=== PATIENT | male | born 1990 | race Caucasian/White ===

== ENCOUNTER 2018-07-18 11:41 | Emergency (ER) | payer OTHER ==
[~2018-07-18] VITALS: Ht 177.8 cm; Wt 113.6 kg
[~2018-07-18 11:41] MED LIST: NORCO 325 MG-51 TAB PO; PRILOSEC 20MG20 MG PO
[2018-07-18 11:53] VITALS: TEMP 98.7
[2018-07-18] MEDS ORDERED: PHENERGAN25 MG (12:03)
[2018-07-18 12:37] LABS: BASO % 0.3 % (0.0-2.0); EOS # 0.1 (0.0-0.7); EOS % 0.9 % (0-4.0); GRAN # 7.3 (1.4-6.5); GRAN % 69.1 % (42.2-75.2); LYMPH # 2.1 (1.2-3.4); LYMPH % 19.8 % (20.0-51.0); MEAN CELL VOLUME 81 fl (80.0-100.0); MEAN CORPUSCULAR HEMOGLOBIN 29 pg (27.0-31.0); MEAN CORPUSCULAR HGB CONC 36 g/dl (33.0-37.0); MEAN PLATELET VOLUME 9.4 fl (7.4-10.4); MONO % 9.3 % (1.7-9.3); PLATELET COUNT 318 K/mm3 (130-400); RED BLOOD COUNT 5.78 M/mm3 (4.20-5.60); REDCELL DISTRIBUTION WIDTH-CV 11.9 % (11.5-14.5)
[2018-07-18 12:41] LABS: COLLECTION METHOD CLEAN CATCH
[2018-07-18 12:46] LABS: MUCOUS Present /lpf; PH 6 (5-8); SQUAMOUS EPITHELIAL None Seen /hpf; URINE APPEARANCE Clear; URINE BACTERIA None Seen /hpf; URINE BILIRUBIN Negative (NEGATIVE); URINE BLOOD 1+ (NEGATIVE); URINE COLOR Yellow; URINE GLUCOSE Negative (NEGATIVE); URINE KETONE Negative (NEGATIVE); URINE LEUKOCYTE ESTERASE Negative (NEGATIVE); URINE NITRATE Negative (NEGATIVE); URINE PROTEIN(semi-quant) Negative (NEGATIVE); URINE RBC 0-2 /hpf
[2018-07-18 12:49] LABS: ALANINE AMINOTRANSFERASE 62 U/L (21-72); ALBUMIN 4.7 gm/dL (3.5-5.0); ALKALINE PHOSPHATASE 44 U/L (50-136); ANION GAP 14 mmol/L (7-16); AST,SGOT 36 U/L (15-37); BILIRUBIN,TOTAL 1.6 mg/dL (0.0-1.0); BLOOD UREA NITROGEN 10 mg/dL (9-20); CALCIUM 9.6 mg/dL (8.4-10.2); CARBON DIOXIDE 25 mmol/L (22-30); CHLORIDE 98 mmol/L (98-107); CREATININE, serum 0.73 (0.66-1.25); GLUCOSE 137 mg/dL (74-106); LIPASE 110 U/L (23-300); SODIUM 137 mmol/L (137-145)
[2018-07-18 12:54] LABS: C-REACTIVE PROTEIN < 0.5 mg/dL (0.0-0.9)
[2018-07-18] MEDS ORDERED: ZOFRAN ODT4 MG PO (14:35)
[2018-07-18] MEDS ORDERED: PHENERGAN 25 TA25 MG PO (14:35)
[2018-07-18] MEDS ORDERED: K-TAB20 PO (14:37)
[2018-07-18 16:54] VITALS: BP 155/94; PULSE 65
== END 2018-07-18 17:06 | disposition home or self-care (01) ==
LOC: COL.ER 11:41
PROVIDERS: Emergency Medicine
DX: E87.6 Hypokalemia (principal); E86.9 Volume depletion, unspecified; R11.10 Vomiting, unspecified; Z90.49 Acquired absence of other specified parts of digestive tract
CPT/HCPCS: J1885; J2405; J2550; J3480; J7030

== ENCOUNTER 2021-11-03 07:40 | Day surgery (SDC) | payer OTHER ==
[~2021-11-03] VITALS: Ht 177.8 cm; Wt 92.2 kg
[~2021-11-03 07:40] MED LIST changes: +K-TAB20 PO; +PHENERGAN 25 TA25 MG PO; +PHENERGAN25 MG; +ZOFRAN ODT4 MG PO
[2021-11-03] MEDS ORDERED: ZESTORETIC 25 M1 TAB PO (08:33)
[2021-11-03] MEDS ORDERED: ADDERALL XR20 MG PO (08:34)
[2021-11-03 09:25] VITALS: BP 147/96; PULSE 74; TEMP 97
[2021-11-03 09:40] VITALS: BP 157/105; PULSE 66
[2021-11-03 09:55] VITALS: BP 148/100; PULSE 62
[2021-11-03 10:01] VITALS: BP 151/96
--- NOTE | 2021-11-03 10:01 | NUR ---
BP ELEVATED. PT REPORTS NOT TAKING HOME MEDS THIS MORNING, REQUEST TO BE ABLE TO TAKE HOME BP MEDS. BP REPORTED TO DR. JOHNS. OK TO LET PT TAKE HOME MED AND D/C HOME PER DR. JOHNS. EDUCATED PT ON RISKS ASSOCIATED WITH HYPERTENSION AND ENCOURAGED PT TO F/U WITH PCM.
[2021-11-03 12:01] VITALS: BP 160/97; PULSE 72; TEMP 97.8
== END 2021-11-03 10:20 | disposition home or self-care (01) ==
LOC: SDCO 07:40
DX: K21.00 Gastro-esophageal reflux disease with esophagitis, without bleeding (principal)
CPT/HCPCS: J2704; J7120